=== PATIENT | female | born 1970 | race Two or more races ===

== ENCOUNTER 2022-05-12 13:02 | Emergency (ER) | payer MEDICAID, OTHER ==
[~2022-05-12] VITALS: Ht 157.5 cm; Wt 103.9 kg
[2022-05-12 15:48] VITALS: BP 145/63
[2022-05-12] MEDS ORDERED: KETOROLAC TROMETH 60MG/2ML VIAL IM ONE (17:15)
[2022-05-12] MEDS ORDERED: CYCL-837 PO (17:37)
[2022-05-12] MEDS ORDERED: IBUP800T27 PO (17:37)
== END 2022-05-12 19:50 | disposition home or self-care (01) ==
LOC: ER 13:02
DX: S16.1XXA Strain of muscle, fascia and tendon at neck level, initial encounter (principal); S39.012A Strain of muscle, fascia and tendon of lower back, initial encounter; S80.02XA Contusion of left knee, initial encounter; S90.02XA Contusion of left ankle, initial encounter; W01.0XXA Fall on same level from slipping, tripping and stumbling without subsequent striking against object, initial encounter; Y93.89 Activity, other specified; Y92.89 Other specified places as the place of occurrence of the external cause; Y99.8 Other external cause status
CPT/HCPCS: 72100; 72125; 96372; 99284; J1885